=== PATIENT | female | born 1950 ===

== ENCOUNTER 2017-04-05 08:46 | Day surgery (SDC) | payer MEDICARE ==
[2017-03-29 10:26] VITALS: BMI 33.5
[~2017-04-05 08:46] MED LIST: Propofol 10 mg/ml Inj (20 ML) ONE
[2017-04-05] MEDS ORDERED: Lactated Ringer's 1,000 ML IV SCH (09:00)
[2017-04-05 17:10] VITALS: BP 125/78; PULSE 57; RESP 18; TEMP 98; O2SAT 96
== END 2017-04-05 11:59 | disposition home or self-care (01) ==
LOC: ENDO 08:46
PROVIDERS: ATTEND Internal Medicine Gastroenterology
DX: Z12.11 Encounter for screening for malignant neoplasm of colon (principal); K29.50 Unspecified chronic gastritis without bleeding; K57.30 Diverticulosis of large intestine without perforation or abscess without bleeding; B19.20 Unspecified viral hepatitis C without hepatic coma
CPT/HCPCS: 43239; 45378; 88305; 88342; J2001; J2704; J3010; J7120

== ENCOUNTER 2017-06-20 21:31 | Emergency (ER) | payer MEDICARE ==
[2017-06-20 22:08] VITALS: TEMP 98.1; BMI 32.5
--- NOTE | 2017-06-20 22:08 | ED PDOC ---
Arrival/HPI - General Time Seen by Provider: 06/20/17 21:41 Historian: Patient - History of Present Illness Narrative History of Present Illness (Text): 06/20/17 22:07 Sanaz Best is a 66 year old female who presents to the emergency department complaining of rib pain s/p fall. Patient states she tripped on a curb 4 days prior and landed on her left side. Patient was seen by EMS at the scene but did not want to be brought to the hospital. Patient states left-rib pain is still present with some difficulty breathing secondary to pain. Patient states she took Ibuprofen at home with no significant relief. Patient denies any fever, chill, abdominal pain, nausea, vomiting, back pain, neck pain, headache, dizziness, head injury, or any other complaints. Time/Duration: < week (4 days) Symptom Onset: Gradual Symptom Course: Unchanged Activities at Onset: Other (Fall) Context: Walking, Street Past Medical History - Provider Review Nursing Documentation Reviewed: Yes - Infectious Disease Hx of Infectious Diseases: None - Cardiac Hx Pacemaker: No - Pulmonary Hx Respiratory Disorders: No - Neurological Hx Paralysis: No - HEENT Hx HEENT Disorder: No - Renal Hx Renal Disorder: No - Endocrine/Metabolic Hx Endocrine Disorders: No - Hematological/Oncological Hx Blood Transfusions: No - Integumentary Hx Dermatological Disorder: No - Musculoskeletal/Rheumatological Hx Musculoskeletal Disorders: No - Gastrointestinal Hx Gastrointestinal Disorders: No - Genitourinary/Gynecological Hx Genitourinary Disorders: No - Psychiatric Hx Emotional Abuse: No Hx Physical Abuse: No Hx Substance Use: No - Surgical History Other/Comment: right knee surgery. - Anesthesia Hx Anesthesia Reactions: No Hx Malignant Hyperthermia: No - Suicidal Assessment Feels Threatened In Home Enviroment: No Family/Social History - Physician Review Nursing Documentation Reviewed: Yes Family/Social History: Unknown Family HX Smoking Status: Never Smoked Hx Alcohol Use: No Hx Substance Use: No Allergies/Home Meds Allergies/Adverse Reactions: Allergies No Known Allergies Allergy (Verified 06/20/17 21:58) Review of Systems - Physician Review All systems were reviewed & negative as marked: Yes - Review of Systems Constitutional: Normal. absent: Fevers Eyes: Normal ENT: Normal Gastrointestinal: Normal. absent: Abdominal Pain, Diarrhea, Nausea, Vomiting Genitourinary Female: Normal. absent: Dysuria, Frequency, Hematuria, Urine Output Changes Musculoskeletal: Other (+left rib pain). absent: Back Pain, Neck Pain Skin: Normal Neurological: Normal. absent: Headache, Dizziness Endocrine: Normal Hemo/Lymphatic: Normal Psychiatric: Normal Physical Exam Vital Signs Reviewed: Yes Vital Signs Temp Pulse Resp BP Pulse Ox 06/20/17 21:56 98.1 F 76 20 133/56 L 96 Temperature: Afebrile Blood Pressure: Normal Pulse: Regular Respiratory Rate: Normal Appearance: Positive for: Well-Appearing, Non-Toxic, Comfortable Mental Status: Positive for: Alert and Oriented X 3 - Systems Exam Head: Present: Atraumatic, Normocephalic Pupils: Present: PERRL Extroacular Muscles: Present: EOMI Conjunctiva: Present: Normal Mouth: Present: Moist Mucous Membranes Neck: Present: Normal Range of Motion Respiratory/Chest: Present: Clear to Auscultation, Good Air Exchange, Tender to Palpation (Tenderness over left anterolateral rib cage area, no crepitus noted) . No: Respiratory Distress, Accessory Muscle Use Cardiovascular: Present: Regular Rate and Rhythm, Normal S1, S2. No: Murmurs Abdomen: No: Tenderness, Distention, Peritoneal Signs, Mass/Organomegaly (No splenomegaly noted) Back: Present: Normal Inspection Upper Extremity: Present: Normal Inspection. No: Cyanosis, Edema Lower Extremity: Present: Normal Inspection. No: Edema Neurological: Present: GCS=15, CN II-XII Intact, Speech Normal Skin: Present: Warm, Dry, Normal Color. No: Rashes Psychiatric: Present: Alert, Oriented x 3, Normal Insight, Normal Concentration Medical Decision Making ED Course and Treatment: 06/20/17 22:07 Impression: 66 year old female complaining of left-sided rib pain s/p fall 4 days prior. Differential Diagnosis included but are not limited to: rib fracture vs. contusion Plan: -- CT Chest w/o contrast -- Reassess and disposition Progress Notes: 06/20/17 23:26 CT Chest shows: Lungs: There is a 1.3 x 1.3 x 1.4 cm pulmonary nodule in the posteromedial right lower lobe. Streaky left lung base opacity secondary to atelectasis/infiltrate or fibrosis. Right middle lobe linear atelectasis or scar. No focal consolidation. Pleural space: Unremarkable. No pneumothorax. No significant effusion. Heart: Unremarkable. No cardiomegaly. No significant pericardial effusion. Thyroid: There is a low density nodule measuring 2.2 cm and the left thyroid lobe. Bones/joints: Degenerative changes in the thoracic spine. No acute fracture. No dislocation. Soft tissues: Unremarkable. Vasculature: Unremarkable. No thoracic aortic aneurysm. Lymph nodes: Unremarkable. No enlarged lymph nodes. IMPRESSION: Right lower lobe pulmonary nodule stable since 2016. No follow-up is necessary. Streaky left lung base opacity secondary to atelectasis/infiltrate or fibrosis. No focal consolidation. 06/20/17 23:[address] Mejia, results of CT scan were discussed in full. Agrees with plan. Pt stable for d/c home with outpt follow up. - RAD Interpretation Radiology Orders: 06/20/17 22:11 CHEST W/O CONTRAST [CT] Stat Food Safety Officer: Radiologist - Medication Orders Current Medication Orders: Discontinued Medications Tramadol/Acetaminophen (Ultracet 37.5/325 Mg) 1 tab PO ONCE STA Stop: 06/20/17 23:52 - Scribe Statement The provider has reviewed the documentation as recorded by the Cheikh Rush Provider Scribe Attestation: All medical record entries made by the Scribe were at my direction and personally dictated by me. I have reviewed the chart and agree that the record accurately reflects my personal performance of the history, physical exam, medical decision making, and the department course for this patient. I have also personally directed, reviewed, and agree with the discharge instructions and disposition. Disposition/Present on Arrival - Present on Arrival Any Indicators Present on Arrival: No History of DVT/PE: No History of Uncontrolled Diabetes: No Urinary Catheter: No History Surgical Site Infection Following: None - Disposition Have Diagnosis and Disposition been Completed?: Yes Diagnosis: Rib contusion Disposition: HOME/ ROUTINE Disposition Time: 23:52 Patient Plan: Discharge Patient Problems: Current Active Problems Problem Status Onset Rib contusion Acute Condition: GOOD Discharge Instructions (ExitCare): Contusion (DC), Bruised Rib (DC) Additional Instructions: Rest/no strenuous physical activity/take meds as prescribed/follow up with this week Prescriptions: traMADol/Acetaminophen [Ultracet 325 MG-37.5 MG] 1 tab PO Q6 PRN #14 tab PRN Reason: Pain Referrals: Bao Mejia MD [Primary Care Provider] - Follow up with primary
--- NOTE | 2017-06-20 23:26 | CT ---
EXAM: CT Chest Without Intravenous Contrast CLINICAL HISTORY: 66 years old, female; Pain; Chest pain; Left-sided chest pain; Additional info: Injury TECHNIQUE: Axial computed tomography images of the chest without intravenous contrast. All CT scans at this facility use one or more dose reduction techniques, viz.: automated exposure control; ma/kV adjustment per patient size (including targeted exams where dose is matched to indication; i.e. head); or iterative reconstruction technique. Coronal and sagittal reformatted images were created and reviewed. COMPARISON: CT - CHEST W/CONTRAST 2016-01-11 11:25 FINDINGS: Lungs: There is a 1.3 x 1.3 x 1.4 cm pulmonary nodule in the posteromedial right lower lobe. Streaky left lung base opacity secondary to atelectasis/infiltrate or fibrosis. Right middle lobe linear atelectasis or scar. No focal consolidation. Pleural space: Unremarkable. No pneumothorax. No significant effusion. Heart: Unremarkable. No cardiomegaly. No significant pericardial effusion. Thyroid: There is a low density nodule measuring 2.2 cm and the left thyroid lobe. Bones/joints: Degenerative changes in the thoracic spine. No acute fracture. No dislocation. Soft tissues: Unremarkable. Vasculature: Unremarkable. No thoracic aortic aneurysm. Lymph nodes: Unremarkable. No enlarged lymph nodes. IMPRESSION: Right lower lobe pulmonary nodule stable since 2016. No follow-up is necessary. Streaky left lung base opacity secondary to atelectasis/infiltrate or fibrosis. No focal consolidation.
[2017-06-20] MEDS ORDERED: TraMADol/Apap 37.5/325 mg Tab PO STA (23:51)
[2017-06-21 03:13] VITALS: BP 130/68; PULSE 85; RESP 18; O2SAT 100
== END 2017-06-20 23:50 | disposition home or self-care (01) ==
LOC: ED 21:31
DX: S20.212A Contusion of left front wall of thorax, initial encounter (principal); W01.0XXA Fall on same level from slipping, tripping and stumbling without subsequent striking against object, initial encounter; Y93.01 Activity, walking, marching and hiking; Y92.410 Unspecified street and highway as the place of occurrence of the external cause

== ENCOUNTER 2018-02-13 10:41 | Emergency (ER) | payer MEDICARE ==
[2018-02-13 10:58] VITALS: BMI 37.5
[2018-02-13 11:00] VITALS: RESP 18; TEMP 98
[2018-02-13] MEDS ORDERED: Lidocaine 5% Patch TD STA (11:41)
--- NOTE | 2018-02-13 11:44 | ED PDOC ---
Arrival/HPI - General Historian: Patient - History of Present Illness Narrative History of Present Illness (Text): 02/13/18 11:43 67F with a PMHx of HLD and Chronic Hep C presents to the ED with a 1 month history of Left sided hip and back pain worsening now in the last 3 days. Pt did not take anything at home to alleviate the pain. Pt reports shooting pains in her back, hip and radiates across her waist. Pt feels limited in her gait. Pt denies any numbness, tingling, loss of bowel/urine control, pt denies any blood in stool, denies vaginal bleeding. Pt denies any inciting trauma to the back/hip. Denies chest pain, SOB, fevers, chills, nausea, vomiting. pt denies loss of appetite. Time/Duration: > week Symptom Onset: Gradual Symptom Course: Worsening Quality: Stabbing Severity Level: Severe <Robert Daugherty - Last Filed: 02/13/18 12:04> <Sudeep Merrill - Last Filed: 02/13/18 16:15> - General Chief Complaint: Hip Pain Time Seen by Provider: 02/13/18 11:37 Past Medical History - Provider Review Nursing Documentation Reviewed: Yes - Infectious Disease Hx of Infectious Diseases: None - Cardiac Hx Pacemaker: No - Pulmonary Hx Respiratory Disorders: No - Neurological Hx Paralysis: No - HEENT Hx HEENT Disorder: No - Renal Hx Renal Disorder: No - Endocrine/Metabolic Hx Endocrine Disorders: No - Hematological/Oncological Hx Blood Transfusions: No - Integumentary Hx Dermatological Disorder: No - Musculoskeletal/Rheumatological Hx Musculoskeletal Disorders: No - Gastrointestinal Hx Gastrointestinal Disorders: No - Genitourinary/Gynecological Hx Genitourinary Disorders: No - Psychiatric Hx Emotional Abuse: No Hx Physical Abuse: No Hx Substance Use: No - Surgical History Other/Comment: right knee surgery. - Anesthesia Hx Anesthesia Reactions: No Hx Malignant Hyperthermia: No - Suicidal Assessment Feels Threatened In Home Enviroment: No <Robert Daugherty - Last Filed: 02/13/18 12:04> Family/Social History - Physician Review Nursing Documentation Reviewed: Yes Family/Social History: CAD/ME (dad) Smoking Status: Never Smoked Hx Alcohol Use: No Hx Substance Use: No <Robert Daugherty - Last Filed: 02/13/18 12:04> Allergies/Home Meds <Robert Daugherty - Last Filed: 02/13/18 12:04> <Sudeep Merrill - Last Filed: 02/13/18 16:15> Allergies/Adverse Reactions: Allergies No Known Allergies Allergy (Verified 06/20/17 21:58) Home Medications: Home Meds Medication Instructions Recorded Confirmed Famotidine [Pepcid] 1 tab PO BID 02/13/18 02/13/18 Ibuprofen [Motrin Tab] 1 tab PO BID 02/13/18 02/13/18 Methocarbamol [Robaxin-750] 1 tab PO BID 02/13/18 02/13/18 Review of Systems - Physician Review All systems were reviewed & negative as marked: Yes - Review of Systems Constitutional: absent: Fatigue, Weight Change, Fevers, Night Sweats Respiratory: absent: SOB, Cough Cardiovascular: absent: Chest Pain Gastrointestinal: Abdominal Pain (LLQ). absent: Nausea, Vomiting, Appetite Changes, Hematochezia, Hematemesis Genitourinary Female: absent: Dysuria, Hematuria Musculoskeletal: Arthralgias (L Hip), Back Pain (L side lower lumbar) Neurological: absent: Headache Psychiatric: Normal <Robert Daugherty - Last Filed: 02/13/18 12:04> Physical Exam Vital Signs Temp Pulse Resp BP Pulse Ox 02/13/18 11:00 98.0 F 75 18 113/80 96 Temperature: Afebrile Blood Pressure: Normal Pulse: Regular Respiratory Rate: Normal Appearance: Positive for: Non-Toxic, Uncomfortable Pain Distress: Moderate Mental Status: Positive for: Alert and Oriented X 3 - Systems Exam Head: Present: Atraumatic, Normocephalic Pupils: No: PERRL Extroacular Muscles: Present: EOMI. No: Gaze Palsy Conjunctiva: Present: Normal Mouth: Present: Moist Mucous Membranes Pharnyx: No: ERYTHEMA Respiratory/Chest: Present: Clear to Auscultation. No: Respiratory Distress Cardiovascular: Present: Regular Rate and Rhythm, Normal S1, S2. No: Murmurs Abdomen: Present: Tenderness (medial to the ASIS upon deep palpation). No: Distention, Rebound, McBurney's Point Tender, Rovsing's Sign Present Back: Present: Paraspinal Tenderness (hypertonicity noted on L side), Pain with Leg Raise (R leg raise induced L sided lumbar pain). No: Midline Tenderness Lower Extremity: Present: NORMAL PULSES, Normal ROM (L hip normal ROM, neg obturator sign) Neurological: Present: CN II-XII Intact, Speech Normal Skin: Present: Warm, Dry, Normal Color Psychiatric: Present: Alert, Oriented x 3, Normal Insight, Normal Concentration <Robert Daugherty - Last Filed: 02/13/18 12:04> Vital Signs Reviewed: Yes Vital Signs Temp Pulse Resp BP Pulse Ox 02/13/18 11:00 98.0 F 75 18 113/80 96 <Sudeep Merrill - Last Filed: 02/13/18 16:15> Medical Decision Making ED Course and Treatment: 02/13/18 12:02 #L Sided Hip/Back pain -cbc, cmp, EKG, UA -CT Lower Ext, L hip Xray 4 views -Toradol 30 IVP -Lidoderm patch 02/13/18 14:57 -Morphine 4mg IVP - RAD Interpretation Radiology Orders: 02/13/18 11:42 EXT LOWER W/O CONTRAST LEFT [CT] Stat Hip Left [HIP MIN 4V W/ PELVIS LT] [RAD] Stat - Medication Orders Current Medication Orders: Discontinued Medications Ketorolac Tromethamine (Toradol) 30 mg IVP STAT STA Stop: 02/13/18 11:41 Lidocaine (Lidoderm) 1 ea TD STAT STA Stop: 02/13/18 11:42 <Robert Daugherty - Last Filed: 02/13/18 12:04> ED Course and Treatment: 02/13/18 15:10 Patient Seen with Resident: In agreement with resident note which contains more details about the patient. Patient seen and evaluated with resident. Came up with plan and treatment together. Impression: 67 year old female who presents to the emergency department complaining of left sided hip and back pain. - Lab Interpretations Lab Results: Total Bilirubin 0.8 mg/dL (0.2-1.3) 02/13/18 13:00 AST 20 U/L (14-36) 02/13/18 13:00 ALT 23 U/L (7-56) 02/13/18 13:00 Alkaline Phosphatase 57 U/L (38-126) 02/13/18 13:00 Total Protein 7.3 g/dL (5.8-8.3) 02/13/18 13:00 Albumin 3.9 g/dL (3.0-4.8) 02/13/18 13:00 Globulin 3.5 gm/dL 02/13/18 13:00 Albumin/Globulin Ratio 1.1 (1.1-1.8) 02/13/18 13:00 Urine Color Yellow (YELLOW) 02/13/18 11:56 Urine Appearance Clear (CLEAR) 02/13/18 11:56 Urine pH 6.0 (4.7-8.0) 02/13/18 11:56 Ur Specific [place] 1.025 (1.005-1.035) 02/13/18 11:56 Urine Protein Negative mg/dL (<30 mg/dL) 02/13/18 11:56 Urine Glucose (UA) Negative mg/dL (NEGATIVE) 02/13/18 11:56 Urine Ketones Negative mg/dL (NEGATIVE) 02/13/18 11:56 Urine Blood Trace-intact (NEGATIVE) H 02/13/18 11:56 Urine Nitrate Negative (NEGATIVE) 02/13/18 11:56 Urine Bilirubin Negative (NEGATIVE) 02/13/18 11:56 Urine Urobilinogen 0.2 E.U./dL (<1 E.U./dL) 02/13/18 11:56 Ur Leukocyte Esterase Small Britney/uL (NEGATIVE) H 02/13/18 11:56 Urine RBC 5 - 10 /hpf (0-2) H 02/13/18 11:56 Urine WBC 10 - 15 /hpf (0-6) H 02/13/18 11:56 Ur Epithelial Cells 4 - 5 /hpf (0-5) 02/13/18 11:56 Amorphous Sediment Few /hpf (NONE) 02/13/18 11:56 Urine Bacteria Many /hpf (NONE) 02/13/18 11:56 Urine Other Uyeast /hpf 02/13/18 11:56 - RAD Interpretation Narrative RAD Interpretations (Text): 02/13/18 15:[address] reviewed, shows: IMPRESSION: no acute intra- abdominal findings. Lower extremity CT reviewed, shows: IMPRESSION: negative study Hip/ pelvis X-ray reviewed, shows: no acute displaced fracture or dislocation. 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 [id number]) Pain Reassessment Is this a pain reassessment? No Sleep Is patient sleeping during reassessment? No Presence of Pain Presence of Pain Yes IVP Administration Document 02/13/18 13:01 EQ (Rec: 02/13/18 13:[address] [facility] [id number]) Charges for Administration # of IVP Administrations 1 Lidocaine (Lidoderm) 1 ea TD STAT STA Stop: 02/13/18 11:42 Last Admin: 02/13/18 13:00 Dose: 1 ea MAR Transdermal Patch Site Document 02/13/18 13:00 EQ (Rec: 02/13/18 13:[address] [facility] [id number]) Transdermal Patch Site Transdermal Patch Site Left Shoulder Morphine Sulfate (Morphine) 4 mg IVP STAT STA Stop: 02/13/18 14:44 <Sudeep Merrill - Last Filed: 02/13/18 16:15> - Scribe Statement The provider has reviewed the documentation as recorded by the Cheikh Bailey Provider Scribe Attestation: All medical record entries made by the Scribe were at my direction and personally dictated by me. I have reviewed the chart and agree that the record accurately reflects my personal performance of the history, physical exam, medical decision making, and the department course for this patient. I have also personally directed, reviewed, and agree with the discharge instructions and disposition. <Sudeep Merrill - Last Filed: 02/13/18 16:15> Disposition/Present on Arrival - Present on Arrival Any Indicators Present on Arrival: No History of DVT/PE: No History of Uncontrolled Diabetes: No Urinary Catheter: No History of Decub. Ulcer: No History Surgical Site Infection Following: None <Robert Daugherty - Last Filed: 02/13/18 12:04> - Disposition Have Diagnosis and Disposition been Completed?: Yes Disposition Time: 16:10 Patient Plan: Discharge <Sudeep Merrill - Last Filed: 02/13/18 16:15> - Disposition Diagnosis: Hip pain, left Condition: STABLE Discharge Instructions (ExitCare): Hip Pain (DC) Print Language: ROMANIAN Additional Instructions: All medical record entries made by the Scribe were at my direction and personally dictated by me. I have reviewed the chart and agree that the record accurately reflects my personal performance of the history, physical exam, medical decision making, and the department course for this patient. I have also personally directed, reviewed, and agree with the discharge instructions and disposition. Please follow up with Dr. Mejia in 3-5 days Prescriptions: traMADol [Ultram] 50 mg PO Q6H #6 tab Referrals: Bao Mejia MD [Staff Provider] - Follow up with primary Forms: Str[employer] (Armenian)
[2018-02-13 12:32] LABS: URINE BILIRUBIN NEGATIVE (NEGATIVE); URINE BLOOD TRACE-INTACT (NEGATIVE); URINE GLUCOSE (UA) NEGATIVE (NEGATIVE); URINE LEUKOCYTE ESTERASE SMALL Leu/uL (NEGATIVE); URINE PROTEIN NEGATIVE mg/dL (<30 mg/dL); URINE UROBILINOGEN 0.2 E.U./dL (<1 E.U./dL)
[2018-02-13 12:33] LABS: URINE APPEARANCE CLEAR (CLEAR); URINE COLOR YELLOW (YELLOW)
[2018-02-13 12:41] LABS: URINE AMORPHOUS SEDIMENT FEW /hpf; URINE BACTERIA MANY /hpf
[2018-02-13 13:14] LABS: BASO # 0.01 K/mm3 (0.0-2.0); BASO % 0.3 % (0.0-3.0); EOS # 0.1 (0.0-0.7); EOS % 1.9 % (1.5-5.0); GRAN # 1.54 (1.4-6.5); GRAN % 41.5 % (50.0-68.0); HEMOGLOBIN 12.4 g/dL (12.0-16.0); LYMPH # 1.8 (1.2-3.4); LYMPH % 49.3 % (22.0-35.0); MEAN CELL VOLUME 86.4 fl (80.0-105.0); MEAN CORPUSCULAR HGB CONC 34.7 g/dl (31.0-37.0); MEAN PLATELET VOLUME 9.9 fl (7.0-11.0); MONO # 0.3 (0.1-0.6); RBC 4.13 10^6/uL (3.5-6.1); RED CELL DISTRIBUTION WIDTH 13.8 % (11.5-14.5); WHITE BLOOD COUNT 3.7 10^3/uL (4.5-11.0)
[2018-02-13 13:24] LABS: ALB/GLOB RATIO 1.1 (1.1-1.8); ALBUMIN 3.9 g/dL (3.0-4.8); ALT/SGPT 23 U/L (7-56); AST/SGOT 20 U/L (14-36); BLOOD UREA NITROGEN 13 mg/dL (7-21); CALCIUM 9.6 mg/dL (8.4-10.5); GFR NON-AFRICAN AMERICAN > 60
--- NOTE | 2018-02-13 14:29 | CT ---
Date of service: 02/13/2018 PROCEDURE: CT Abdomen and Pelvis with contrast HISTORY: h/oleft groin pain COMPARISON: CT 06/20/2017 TECHNIQUE: Contrast dose: 150 cc of Omni 350. Radiation dose: Total exam DLP = 991.15 mGy-cm. This CT exam was performed using one or more of the following dose reduction techniques: Automated exposure control, adjustment of the mA and/or kV according to patient size, and/or use of iterative reconstruction technique. FINDINGS: LOWER THORAX: There is a 13 mm nodule at the right lung base that is unchanged. LIVER: Unremarkable. No gross lesion or ductal dilatation. GALLBLADDER AND BILE DUCTS: Unremarkable. PANCREAS: Unremarkable. No gross lesion or ductal dilatation. SPLEEN: Unremarkable. ADRENALS: Unremarkable. No mass. KIDNEYS AND URETERS: Unremarkable. No hydronephrosis. No solid mass. VASCULATURE: Unremarkable. No aortic aneurysm. No aortic atherosclerotic calcification or mural plaque present. BOWEL: Unremarkable. No obstruction. No gross mural thickening. APPENDIX: Normal appendix. PERITONEUM: Unremarkable. No free fluid. No free air. LYMPH NODES: Unremarkable. No enlarged lymph nodes. BLADDER: Unremarkable. REPRODUCTIVE: Unremarkable. BONES: No acute fracture. OTHER FINDINGS: None. IMPRESSION: No acute intra-abdominal findings
--- NOTE | 2018-02-13 14:32 | CT ---
Date of service: 02/13/2018 PROCEDURE: CT of the left hip without contrast HISTORY: hip pain COMPARISON: TECHNIQUE: Radiation dose: Total exam DLP = 1062.58 mGy-cm. This CT exam was performed using one or more of the following dose reduction techniques: Automated exposure control, adjustment of the mA and/or kV according to patient size, and/or use of iterative reconstruction technique. FINDINGS: There is no evidence of fracture. There is no significant joint space narrowing. There is no joint effusion. There are no soft tissue abnormalities. IMPRESSION: Negative study
[2018-02-13] MEDS ORDERED: Morphine 4 mg/ml ISec IVP STA (14:43)
--- NOTE | 2018-02-13 14:47 | RAD ---
PROCEDURE: Left Hip X-ray Radiographs. HISTORY: Pain COMPARISON: None. FINDINGS: BONES: The pelvic ring is intact. There is no acute displaced fracture or bone destruction. Bone alignment is normal. JOINTS: The hip joint spaces are preserved. There is mild degenerative osteoarthrosis in the sacroiliac joints and mild osteitis pubis. SOFT TISSUES: Normal. OTHER FINDINGS: Contrast material is identified in the distal ureters an urinary bladder from prior intravenous injection. IMPRESSION: No acute displaced fracture or dislocation.
--- NOTE | 2018-02-13 16:39 | RAD ---
Date of service: 02/13/2018 PROCEDURE: Radiographs of the Lumbar Spine. HISTORY: back pain COMPARISON: No prior. FINDINGS: BONES: There is degenerative 10 mm anterior listhesis of L4 on L5. There is also degenerative 9 mm retrolisthesis of L2 on L3 and mild retrolisthesis of L1 on L2. There is exaggerated lumbar lordosis. There is no acute fracture or spondylolysis. There is mild diffuse bone demineralization. DISC SPACES: There is multilevel degenerative disc disease worse at L4-5 and L5-S1 with severe reduced disc heights and advanced facet arthropathy. OTHER FINDINGS: There is contrast material in the renal collecting system and urinary bladder from prior intravenous injection. IMPRESSION: Multilevel degenerative disc disease, worse at L4-5 with degenerative 10 mm anterior listhesis of L4 on L5. No acute fracture or spondylolysis.
[2018-02-13 16:48] VITALS: BP 116/76; PULSE 78; O2SAT 98
== END 2018-02-13 17:00 | disposition home or self-care (01) ==
LOC: ED 10:41
DX: M25.552 Pain in left hip (principal); E78.5 Hyperlipidemia, unspecified; B18.2 Chronic viral hepatitis C; Z82.49 Family history of ischemic heart disease and other diseases of the circulatory system
CPT/HCPCS: 72110; 73503; 73700; 74177; 80053; 81001; 83735; 84100; 85025; 87086; 96374; 99283; J1885; Q9967